=== PATIENT | female | born 1960 | race Caucasian/White ===

== ENCOUNTER 2023-04-13 13:32 | Emergency (ER) | payer OTHER ==
[2023-04-13 13:49] VITALS: BP 159/78; PULSE 79; RESP 20; TEMP 98.9; BMI 26.5
[2023-04-13] MEDS ORDERED: ACETAMINOPHEN 325 MG TABLET (FP) ONE (13:57)
[2023-04-13] MEDS: ACETAMINOPHEN 500 MG TABLET (FP) PO ONE (14:00)
== END 2023-04-13 16:27 | disposition home or self-care (01) ==
LOC: JER 13:32
DX: M25.562 Pain in left knee (principal); M25.552 Pain in left hip; W10.1XXA Fall (on)(from) sidewalk curb, initial encounter
CPT/HCPCS: 72170-TC-FY; 73502-TC-LT-FY; 73562-TC-LT-FY; 99284-25